=== PATIENT | female | born 1965 | race Caucasian/White ===

== ENCOUNTER 2022-10-02 13:26 | Emergency (ER) | payer BC | END 2022-10-02 15:31 | disposition home or self-care (01) | LOC: JP.ED 13:26 | DX: S60.445A External constriction of left ring finger, initial encounter (principal); T63.441A Toxic effect of venom of bees, accidental (unintentional), initial encounter; W49.04XA Ring or other jewelry causing external constriction, initial encounter | CPT/HCPCS: 99283 ==